=== PATIENT | female | born 2000 | race Caucasian/White ===

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

== ENCOUNTER 2020-10-21 23:58 | Emergency (ER) | payer OTHER ==
[~2020-10-21] VITALS: Ht 149.9 cm; Wt 84.9 kg
[~2020-10-21 23:58] MED LIST changes: -HYDR15SO4 PO; +HYDR15SO6 PO
[2020-10-22] VITALS: BP 126/72
[2020-10-22 01:10] LABS: BASO % 0 % (0-3); EOS # 0.1 x10^3/uL (0.0-0.7); EOS % 1 % (0-3); HEMATOCRIT 38.6 % (36.0-47.0); HEMOGLOBIN 12.7 g/dL (12.0-15.5); LYMPH # 2.7 x10^3/uL (1.0-4.8); LYMPH % 30 % (24-48); MEAN CORPUSCULAR HEMOGLOBIN 28 pg (25-35); MEAN CORPUSCULAR HGB CONC 33 g/dL (31-37); MEAN CORPUSCULAR VOLUME 84 fL (79-100); MONO # 0.8 x10^3/uL (0.0-1.1); MONO % 9 % (0-9); NEUT # 5.4 x10^3uL (1.8-7.7); NEUT % 60 % (31-73); PLATELET COUNT 310 x10^3/uL (140-400); RED CELL DISTRIBUTION WIDTH 13.1 % (11.5-14.5)
[2020-10-22 01:14] LABS: U PREG PATIENT NEGATIVE (NEG)
[2020-10-22 01:17] LABS: BILIRUBIN,URINE NEG (NEG); CLARITY,URINE CLEAR; COLOR,URINE YELLOW; GLUCOSE,URINE NEG (NEG)
--- NOTE | 2020-10-22 01:17 | PHYS DOC ---
Past History Past Medical History: Anxiety, GERD, IBS Past Surgical History: Other Additional Past Surgical Histo: wisdom teeth Smoking: Non-smoker Alcohol Use: None Drug Use: None Adult General Chief Complaint Chief Complaint: SUICIDAL IDEATION HPI HPI Patient is an otherwise healthy 19-year-old female presents with mom for chief complaint of suicidal ideation. Family states that her best friend recently and is caused a lot of stress. Patient states she was in her room earlier, began thinking about her friend and started crying. States she cried for about 30 minutes. States she went in the bathroom to wash her face and open the cabinet and saw some razors and had fleeting thoughts of suicide and using razors to do this. States she shot the cabinet right away but then got worried that she was having a thoughts and told her mom because her best friend had committed suicide. Patient currently denies any thoughts of suicidal ideation, homicidal ideation or hallucinations. States that she really does not want to but does not like the fact that she was having those thoughts that made her sad. Mom feels that she is just really sad and had some random thoughts as she is never had anything like that happen before and is never tried to hurt her self. Denies any recent travel, trauma, illnesses, fever 0 contacts. Denies any alcohol or drug use. Review of Systems Review of Systems Review of systems otherwise unremarkable except for noted in HPI Allergies Allergies Allergies Coded Allergies Type Severity Reaction Last Updated Verified Penicillins Allergy Intermediate 03/29/17 Yes Physical Exam Physical Exam Constitutional: Well developed, well nourished, no acute distress, non-toxic appearance. [] HENT: Normocephalic, atraumatic, b Eyes: PERRLA, EOMI, conjunctiva normal, no discharge. [] Neck: Normal range of motion, Cardiovascular:Heart rate regular rhythm, no murmur [] Lungs & Thorax: Bilateral breath sounds clear to auscultation [] Abdomen: soft, no tenderness, Skin: Warm, dry, no erythema, no rash. [] Extremities: No tenderness, no cyanosis, no clubbing, ROM intact, no edema. [] Neurologic: Alert and oriented X 3, normal motor function, normal sensory function, no focal deficits noted. [] Psychologic: Patient awake, pleasant and cooperative but appears mildly anxious given the situation. Denies SI, HI or hallucinations. Currently states that she has no intention of hurting herself and does not want to but got scared when she had those thoughts as her best friend recently committed suicide. Mom also feels that these were fleeting thoughts and that she does not have any concerns about her committing suicide but just got worried that she was having these thoughts. Current Patient Data Vital Signs Vital Signs Date Time Temp Pulse Resp B/P (MAP) Pulse Ox O2 Delivery O2 Flow Rate FiO2 10/22/20 00:00 98.5 87 18 126/72 (90) 97 Room Air Lab Results Laboratory Tests Test 10/22/20 00:10 10/22/20 00:46 Urine Test Negative (NEG) White Blood Count 9.0 x10^3/uL (4.0-11.0) Red Blood Count 4.60 x10^6/uL (3.50-5.40) Hemoglobin 12.7 g/dL (12.0-15.5) Hematocrit 38.6 % (36.0-47.0) Mean Corpuscular Volume 84 fL (79-100) Mean Corpuscular Hemoglobin 28 pg (25-35) Mean Corpuscular Hemoglobin Concent 33 g/dL (31-37) Red Cell Distribution Width 13.1 % (11.5-14.5) Platelet Count 310 x10^3/uL (140-400) Neutrophils (%) (Auto) 60 % (31-73) Lymphocytes (%) (Auto) 30 % (24-48) Monocytes (%) (Auto) 9 % (0-9) Eosinophils (%) (Auto) 1 % (0-3) Basophils (%) (Auto) 0 % (0-3) Neutrophils # (Auto) 5.4 x10^3uL (1.8-7.7) Lymphocytes # (Auto) 2.7 x10^3/uL (1.0-4.8) Monocytes # (Auto) 0.8 x10^3/uL (0.0-1.1) Eosinophils # (Auto) 0.1 x10^3/uL (0.0-0.7) Basophils # (Auto) 0.0 x10^3/uL (0.0-0.2) EKG EKG [] Radiology/Procedures Radiology/Procedures [] Heart Score Risk Factors: Risk Factors: DM, Current or recent (<one month) smoker, HTN, HLP, family history of CAD, obesity. Risk Scores: Risk Factors: DM, Current or recent (<one month) smoker, HTN, HLP, family history of CAD, obesity. Course & Med Decision Making Course & Med Decision Making Patient is a 19-year-old female who presents with fleeting thoughts/suicidal ideation Vital signs not concerning. Physical exam noted above. In the emergency department patient had no thoughts of suicide, homicide and no hallucinations. States that she really does not want to hurt her self but got scared when she had this fleeting thoughts as her best friend did just commit suicide which made her feel sad. Mom also feels that these were fleeting thoughts and she has never tried anything like this before and feels safe to take her home, but just got worried when she came to her discussing these thoughts. The PAT team evaluated patient and felt the same, that she was no risk to herself, was not SI, HI or hallucinating. [place] that this was probably thoughts that were fleeting due to her recent loss of her best friend's suicide and other stressors and sadness. The team and family came up with a safety plan for home that everybody agreed with and would act on. Advised family to follow-up with primary care and to discuss recent ED visit and follow-up on the resources/guidance/therapy discussed with the PAT team. Gave strict return precautions to the emergency department. Family grateful, verbalized understanding and agreed with plan of discharge. [] Dragon Disclaimer Dragon Disclaimer This electronic medical record was generated, in whole or in part, using a voice recognition dictation system. Departure Departure: Impression: Primary Impression: Suicidal ideation Disposition: 01 DC HOME SELF CARE/HOMELESS Condition: GOOD Referrals: DAVIS MCCONNELL MD (PCP) Patient Instructions: Suicidal Feelings, How to Help Yourself Additional Instructions: Please read the attached information and all the resources that were given to you by the PAT team. Please follow-up also with your primary care physician to discuss your recent ED visit. Please come back to the emergency department immediately if you have any new or concerning symptoms. TRISTIN LI MD Oct 22, 2020 01:17
[2020-10-22 01:18] LABS: BACTERIA,URINE 0 /HPF (0-FEW); NITRITE,URINE NEG (NEG); RBC,URINE 0 /HPF (0-2); SQUAMOUS EPITHELIAL CELL,UR OCC /LPF; UROBILINOGEN,URINE 0.2 mg/dL (0.2 mg/dL); WBC,URINE OCC /HPF (0-4)
[2020-10-22 01:18] LABS: CALCIUM 9.3 mg/dL (8.5-10.1); CREATININE 0.8 mg/dL (0.6-1.0); GFR 92.4; POTASSIUM 3.7 mmol/L (3.5-5.1)
[2020-10-22 01:19] LABS: BARBITURATES NEG (NEG); BENZODIAZEPINES NEG (NEG); CANNABINOIDS NEG (NEG); COCAINE NEG (NEG); METHADONE NEG (NEG); OPIATES NEG (NEG); PHENCYCLIDINE NEG (NEG)
[2020-10-22 01:20] LABS: AMPHETAMINE/METHAMPHETAMINE NEG (NEG)
[2020-10-22 01:24] LABS: ALBUMIN 3.6 g/dL (3.4-5.0); ALBUMIN/GLOBULIN RATIO 0.8 (1.0-1.7); TOTAL BILIRUBIN 0.4 mg/dL (0.2-1.0); TOTAL PROTEIN 8.1 g/dL (6.4-8.2)
[2020-10-22 01:26] LABS: SALIC < 2.8 mg/dL (2.8-20.0)
[2020-10-22 01:27] LABS: ACETAMIN < 2.0 mcg/mL (10-30); ETHANOL < 10 mg/dL (0-10)
== END 2020-10-22 03:45 | disposition home or self-care (01) ==
LOC: ER 23:58
DX: R45.851 Suicidal ideations (principal); F43.9 Reaction to severe stress, unspecified; F41.9 Anxiety disorder, unspecified; K21.9 Gastro-esophageal reflux disease without esophagitis; K58.9 Irritable bowel syndrome, unspecified; Z88.0 Allergy status to penicillin
CPT/HCPCS: 36415; 80053; 80307; 80329; 81001; 81025; 85025; 99285; G0480

== ENCOUNTER → 2020-12-26 | Outpatient (CLI) | payer OTHER ==
--- NOTE | 2020-12-26 13:28 | RAD ---
XR RT WRIST 3VIEWS DATE: 12/26/2020 10:33 AM INDICATION: Reason: RIGHT WRIST PAIN / Spl. Instructions: / History: COMPARISON: None. FINDINGS: Bones: There is no evidence of acute fracture or dislocation. Joints: The joint spaces are normal. Miscellaneous: None. IMPRESSION: No evidence of acute fracture. Electronically signed by: Power Valle MD (12/26/2020 1:26 PM) [id number]
== END ==
LOC: RAD 10:28
PROVIDERS: ATTEND Physician Assistant
DX: M25.531 Pain in right wrist (principal)
CPT/HCPCS: 73110

== ENCOUNTER → 2021-01-29 | Outpatient (CLI) | payer OTHER ==
--- NOTE | 2021-01-29 13:25 | RAD ---
EXAM: Right elbow, 2 views. HISTORY: Pain. COMPARISON: None. FINDINGS: 2 views of the right elbow are obtained. There is no fracture, dislocation or subluxation. There is no elbow effusion. IMPRESSION: No acute osseous finding. Electronically signed by: Rose Alfred MD (01/29/2021 1:22 PM) [id number]
== END ==
LOC: RAD 12:50
PROVIDERS: ATTEND Physician Assistant
DX: M77.8 Other enthesopathies, not elsewhere classified (principal)
CPT/HCPCS: 73070

== ENCOUNTER 2021-05-06 22:43 | Emergency (ER) | payer OTHER ==
[~2021-05-06] VITALS: Ht 149.9 cm; Wt 84.9 kg
--- NOTE | 2021-05-06 23:03 | PHYS DOC ---
Past History Past Medical History: Anxiety, GERD, IBS Past Surgical History: Other Additional Past Surgical Histo: wisdom teeth Smoking: Non-smoker Alcohol Use: None Drug Use: None General Adult EDM: Chief Complaint: Suicidal ideations, HPI: HPI: 20-year-old female with a history of depression and takes Prozac, says she was depressed and feeling suicidal, the patient also has a history of anxiety and takes hydroxyzine, she said that she took 1 shot of [place] whiskey and also 50 mg of Atarax in an apparent attempt to harm herself, says that she has had prior admissions voluntarily to [facility], denies any physical symptoms at this time, no homicidal ideations, Review of Systems: Review of Systems: General: no fevers , no chills, no general weakness Eyes: no blurred vision, no diplopia Skin: no rashes Neck: no swelling, no neck stiffness, no neck pain Heme: no bleeding, no lymph node enlargement Ear/Nose/Throat: No sore throat, no runny nose, no hearing loss, no difficulty swallowing Cardiovascular: no Chest pain, no palpitations Respiratory: No dyspnea, no cough, no hemoptysis Gastrointestinal: No abdominal pain, no nausea, no vomiting, no diarrhea, no blood in stool Genitourinary: no dysuria, no hematuria Musculoskeletal: no back pain, no leg pain, no arm pain, no arthralgia Neurologic: no headaches, no dizziness, no focal numbness/tingling, no focal weakness Psych: Positive for depression, positive for anxiety, positive for SI, no HI *All review of systems are negative other than what is noted above Allergies: Allergies: Allergies Coded Allergies Type Severity Reaction Last Updated Verified Penicillins Allergy Intermediate 03/29/17 Yes Physical Exam: PE: Gen-well appearing, no acute distress Head: Normocephalic/Atraumatic ENT: atraumatic, PERRLA, EOMI, oropharynx clear Neck: supple, full ROM/strength, no JVD, no nuchal rigidity Lungs: no distress, speaks in full sentences, Clear to auscultation bilaterally CV: reg rate, rhythm, no murmus/rubs/gallops, peripheral pulses equal in all extremities Abdomen: soft/nontender, no guarding/rebound tenderness, no rigidity, non distended, normoactive bowel sounds Musculoskeletal: full ROM/strength in all extremities, atraumatic, no swelling Back: full range of motion/strength Skin: intact, no rashes Lymph: no gross FELECIA Neuro: alert and oriented x 4, CN 2-12 grossly intact, Motor strength is 5/5 in all extremities, no focal sensory deficits, no focal ataxia, ambulatory with steady gait Psych: Slightly tearful affect, clinically sober, positive SI, no HI EKG: EKG: Twelve-lead EKG was performed at 11:04 PM: Normal sinus rhythm, rate is 84, normal and nonischemic appearing EKG with normal axis and intervals [] Radiology/Procedures: Radiology/Procedures: [] Heart Score: C/O Chest Pain: No Risk Factors: Risk Factors: DM, Current or recent (<one month) smoker, HTN, HLP, family history of CAD, obesity. Risk Scores: Score 0 - 3: 2.5% MACE over next 6 weeks - Discharge Home Score 4 - 6: 20.3% MACE over next 6 weeks - Admit for Clinical Observation Score 7 - 10: 72.7% MACE over next 6 weeks - Early Invasive Strategies Course & Med Decision Making: Course & Med Decision Making Pertinent Labs and Imaging studies reviewed. (See chart for details) [] 20-year-old female presents to the ED with suicidal ideations with a plan to overdose, the patient had endorsed to EMS that she took 50 mg of hydroxyzine and 1 alcoholic drink, this is a nonlethal overdose and I believe that the patient is otherwise clinically sober and no active medical issues, will get the usual labs, Tylenol and salicylate levels, EKG, urine drug screen and alcohol level and I will have the pat team come and evaluate her for placement Dragon Disclaimer: Harvey Disclaimer: This electronic medical record was generated, in whole or in part, using a voice recognition dictation system. Departure Departure: Impression: Primary Impression: Suicidal ideations Referrals: DAVIS MCCONNELL MD (PCP) WILL JORDAN MD May 06, 2021 23:03
[2021-05-06 23:30] LABS: BASO % 0 % (0-3); EOS % 0 % (0-3); HEMATOCRIT 35.1 % (36.0-47.0); HEMOGLOBIN 11.5 g/dL (12.0-15.5); LYMPH % 21 % (24-48); MEAN CORPUSCULAR HEMOGLOBIN 28 pg (25-35); MEAN CORPUSCULAR HGB CONC 33 g/dL (31-37); MEAN CORPUSCULAR VOLUME 85 fL (79-100); MONO # 0.8 x10^3/uL (0.0-1.1); MONO % 8 % (0-9); NEUT # 6.8 x10^3uL (1.8-7.7); NEUT % 70 % (31-73); PLATELET COUNT 309 x10^3/uL (140-400); RED BLOOD COUNT 4.14 x10^6/uL (3.50-5.40); RED CELL DISTRIBUTION WIDTH 13.4 % (11.5-14.5); WHITE BLOOD COUNT 9.8 x10^3/uL (4.0-11.0)
[2021-05-06 23:40] LABS: CALCIUM 8.5 mg/dL (8.5-10.1); CREATININE 0.6 mg/dL (0.6-1.0); GFR 127.5; POTASSIUM 3.4 mmol/L (3.5-5.1)
[2021-05-06 23:45] LABS: ALBUMIN 3.4 g/dL (3.4-5.0); ALBUMIN/GLOBULIN RATIO 0.9 (1.0-1.7); TOTAL BILIRUBIN 0.3 mg/dL (0.2-1.0); TOTAL PROTEIN 7.2 g/dL (6.4-8.2)
[2021-05-06 23:47] LABS: ACETAMIN < 2.0 mcg/mL (10-30); ETHANOL < 10 mg/dL (0-10); SALIC 3.4 mg/dL (2.8-20.0)
[2021-05-07 00:05] LABS: BARBITURATES NEG (NEG); BENZODIAZEPINES NEG (NEG); CANNABINOIDS POS (NEG); COCAINE NEG (NEG); METHADONE NEG (NEG); OPIATES NEG (NEG); PHENCYCLIDINE NEG (NEG)
[2021-05-07 00:07] LABS: AMPHETAMINE/METHAMPHETAMINE NEG (NEG)
[2021-05-07 00:09] LABS: BACTERIA,URINE 0 /HPF (0-FEW); BILIRUBIN,URINE NEG (NEG); CLARITY,URINE CLEAR; COLOR,URINE YELLOW; GLUCOSE,URINE NEG (NEG); NITRITE,URINE NEG (NEG); RBC,URINE 0 /HPF (0-2); SQUAMOUS EPITHELIAL CELL,UR FEW /LPF; UROBILINOGEN,URINE 0.2 mg/dL (0.2 mg/dL); WBC,URINE RARE /HPF (0-4)
[2021-05-07 00:10] LABS: U PREG PATIENT NEGATIVE (NEG)
--- NOTE | 2021-05-07 02:43 | EKG ---
[address] [address] Test Date: 2021-05-06 Test Time: 23:04:42 Pat Name: RASHEED MORILLO Department: Room: Gender: F Hand Stoner: SAMANTHA : 2000 Requested By: WILL JORDAN Order Number: [id number] Reading MD: Measurements Intervals [place] Rate: 84 P: 39 TX: 138 QRS: 11 QRSD: 82 T: 17 QT: 368 QTc: 438 Interpretive Statements SINUS RHYTHM NORMAL ECG RI6.02 No previous ECG available for comparison
[2021-05-07 07:03] VITALS: BP 104/60
== END 2021-05-07 08:31 ==
LOC: ER 22:43
DX: R45.851 Suicidal ideations (principal); F41.9 Anxiety disorder, unspecified; F32.9 Major depressive disorder, single episode, unspecified; K21.9 Gastro-esophageal reflux disease without esophagitis; K58.9 Irritable bowel syndrome, unspecified; Z20.822 Contact with and (suspected) exposure to COVID-19; Z88.0 Allergy status to penicillin
CPT/HCPCS: 80053; 80307; 80329; 81001; 81025; 83690; 84443; 85025; 87426; 93005; 99285; C9803; G0480; U0003

== ENCOUNTER 2021-07-09 10:19 | Emergency (ER) | payer OTHER ==
[~2021-07-09] VITALS: Ht 152.4 cm; Wt 84.9 kg
[2021-07-09 10:40] VITALS: BP 113/56
--- NOTE | 2021-07-09 11:15 | PHYS DOC ---
Past History Past Medical History: Anxiety, GERD, IBS Additional Past Medical Histor: PTSD, ADHD, R ganglion cyst Past Surgical History: Other Additional Past Surgical Histo: wisdom teeth Smoking: Non-smoker Additional Smoking Information: Vape use Alcohol Use: None Drug Use: None General Adult EDM: Chief Complaint: WRIST PAIN HPI: HPI: Patient is a 20 year old female with history of right wrist ganglion cyst who presents with right wrist pain. Patient states her pain began yesterday, however she has had chronic issues since Sep 2020. She was diagnosed with a ganglion cyst on the right wrist, but to this point has been unable to have it surgically removed. She has taken naproxen consistently, however the pain was not relieved yesterday. Patient states her last dose was sometime yesterday evening. Patient has no other complaints at this time. Review of Systems: Review of Systems: ROS negative except as mentioned in HPI. Current Medications: Current Meds: Current Medications Medications (Trade) Dose Ordered Sig/Karri Start Time Stop Time Status Last Admin Dose Admin Ketorolac Tromethamine (Toradol 15mg Vial) 15 mg 1X ONCE 07/09/21 10:45 07/09/21 10:46 UNV Allergies: Allergies: Allergies Coded Allergies Type Severity Reaction Last Updated Verified Penicillins Allergy Intermediate 03/29/17 Yes Physical Exam: PE: Constitutional: Well developed, well nourished, no acute distress, non-toxic appearance. Cardiovascular:Heart rate regular rhythm, no murmur. Lungs & Thorax: Bilateral breath sounds clear to auscultation. Skin: Warm, dry, no erythema, no rash. Extremities: Right wrist with medial tenderness and limited wrist extension secondary to pain. Extremities otherwise no tenderness, no cyanosis, no clubbing, ROM intact, no edema. Neurologic: Alert and oriented x3, normal motor function, normal sensory function, no focal deficits noted. Heart Score: C/O Chest Pain: No Course & Med Decision Making: Course & Med Decision Making Pertinent Labs and Imaging studies reviewed. (See chart for details) Patient history and presentation consistent with worsening ganglion on cyst symptoms. Patient will be given ketorolac and instructed to use naproxen at home until she can visit orthopedic surgeon. Patient does request a referral for a new orthopedic surgeon, because her prior consult was not covered by her insurance. Patient understands and is agreeable to discharge plan. Dragon Disclaimer: Draglaurence Disclaimer: This electronic medical record was generated, in whole or in part, using a voice recognition dictation system. Departure Departure: Impression: Primary Impression: Wrist pain, chronic Qualified Codes: M25.531 - Pain in right wrist; G89.29 - Other chronic pain Disposition: 01 HOME / SELF CARE / HOMELESS Condition: STABLE Referrals: DAVIS MCCONNELL MD (PCP) LAZARO CORONA MD Patient Instructions: Wrist Pain, [id number] Additional Instructions: Beginning this evening, resume taking [id number] naproxen. You were provided with an orthopedic doctor referral for further management of your burton gnosed cyst. Please return to the emergency department if your pain is unmanageable at home. LADONNA TRAORE Jul 09, 2021 11:15
[2021-07-09] MEDS: KETOROLAC 15 MG/ML VIAL. IM ONE (11:21)
== END 2021-07-09 11:03 | disposition home or self-care (01) ==
LOC: ER 10:19
DX: M25.531 Pain in right wrist (principal); G89.29 Other chronic pain; K21.9 Gastro-esophageal reflux disease without esophagitis; Z88.0 Allergy status to penicillin
CPT/HCPCS: 96372; 99283; J1885

== ENCOUNTER → 2021-09-04 | Outpatient (CLI) | payer OTHER ==
[~2021-09-04] MED LIST changes: +CLIN-95 PO; +PARO40TA61 PO
== END ==
LOC: LAB 10:40
PROVIDERS: ATTEND Otolaryngology
DX: Z01.812 Encounter for preprocedural laboratory examination (principal); J35.01 Chronic tonsillitis; Z20.822 Contact with and (suspected) exposure to COVID-19
CPT/HCPCS: U0003

== ENCOUNTER → 2021-09-08 | Day surgery (SDC) | payer OTHER ==
[~2021-09-08] MED LIST changes: +DEXAMETHASONE SOD PHOS 20 MG/5 ML VIAL. ONE; +FAMOTIDINE 20 MG/2 ML VIAL IVP ONE; +FAMOTIDINE 20 MG/2 ML VIAL ONE; +IV RINGERS SOLUTION,LACTATED 1,000 ML IV SCH; +KETOROLAC 30 MG/ML VIAL. ONE; +LIDOCAINE 1%/EPI 1:100,000 20 ML VIAL. IJ ONE; +LIDOCAINE 1%/EPI 1:100,000 20 ML VIAL. ONE; +LIDOCAINE 2% PF 5 ML VIAL. ONE; +MIDAZOLAM HCL PF 2 MG/2 ML VIAL. IVP PRN; +MIDAZOLAM HCL PF 2 MG/2 ML VIAL. ONE; +ONDANSETRON PF 4 MG/2 ML VIAL. ONE; +PROPOFOL 10,000 MCG/ML (20ML) VIAL IV ONE
[2021-09-08 08:35] LABS: U PREG PATIENT NEGATIVE (NEG)
[2021-09-08 12:28] VITALS: BP 111/62
--- NOTE | 2021-09-08 18:45 | OP ---
DATE OF SURGERY: 09/08/2021 PREOPERATIVE DIAGNOSIS: Chronic tonsillitis with hypertrophy. POSTOPERATIVE DIAGNOSIS: Chronic tonsillitis with hypertrophy. PROCEDURE PERFORMED: Tonsillectomy. INDICATIONS: Airway obstruction from tonsillar hypertrophy and recurrent infection. ANESTHESIA: General anesthetic. BLOOD LOSS: Less than 15 mL. DESCRIPTION OF PROCEDURE: The patient was brought to the operating room and placed on the operating room table in the supine position. She was given a general anesthetic. When her airway was secure, the table was rotated 90 degrees. Her face was then prepped and draped after sterile fashion. A Christina-Jean mouth gag was then placed in the oral cavity and her mouth was braced open. Tonsils were found to be cryptic and enlarged. The left tonsil was approached first by grasping it with an Allis and retracting it to a medial position. A shallow incision was created with a scalpel blade and gentle dissection was then carried out using a [place] dissector and a Coblator. As the dissection progressed, the Coblator was used to aid in dissection and also in control of bleeding. Gentle dissection resulted in removal of the tonsil without significant blood loss. The right tonsil was then evaluated and in a similar fashion, it was retracted to a medial position. A shallow incision created and gentle dissection accomplished using the Coblator and a curved dissector. With complete removal of both tonsils and active bleeding controlled, the oropharynx was irrigated and suctioned free of blood. 1% lidocaine with epinephrine was then injected into the tonsil pillars for postoperative comfort and the procedure was completed. The patient was recovered from her anesthesia and taken to recovery room in stable condition. LORI DR: Tiki TID: [id number]
== END | disposition home or self-care (01) ==
LOC: SURG 07:38
PROVIDERS: ATTEND Otolaryngology
DX: J35.01 Chronic tonsillitis (principal); Z98.890 Other specified postprocedural states
CPT/HCPCS: 42826; 81025; J1100; J1885; J2001; J2250; J2405; J2704; J3010; J3490; J7120